=== PATIENT | male | born 1985 | race African-American/Black ===

== ENCOUNTER 2022-03-30 18:26 | Emergency (ER) | payer BC ==
[~2022-03-30] VITALS: Ht 185.4 cm; Wt 95.5 kg
[2022-03-30 18:28] VITALS: BP 164/113
== END 2022-03-30 19:37 | disposition left against medical advice (07) ==
LOC: EMS 18:31
DX: Z53.21 Procedure and treatment not carried out due to patient leaving prior to being seen by health care provider (principal)